=== PATIENT | female | born 1960 | race African-American/Black ===

== ENCOUNTER 2022-03-12 10:28 | Inpatient (IN) | payer SELFPAY ==
[~2022-03-12] VITALS: Ht 167.6 cm; Wt 100.2 kg
[2022-03-12 11:05] LABS: BASOPHILS % 0.3 % (0.0-2.0); EOSINOPHILS % 0.5 % (0.0-5.0); HEMATOCRIT. 33.6 % (36.0-48.0); HEMOGLOBIN. 10.9 g/dL (12.0-16.0); LYMPHOCYTES % 8.7 % (20.0-50.0); MEAN CORPUSCULAR HEMOGLOBIN 28.3 pg (28.0-32.0); MEAN CORPUSCULAR VOLUME 87.5 fL (81.0-99.0); MONOCYTES % 5.6 % (2.0-8.0); NEUTROPHILS % 84.9 % (40.0-76.0); PLATELET 212 x1000/uL (130-400); RED BLOOD CELL COUNT 3.84 mill/uL (4.2-5.4); RED CELL DISTRIBUTION WIDTH 13.4 % (11.6-14.6)
[2022-03-12 11:09] LABS: CLARITY URINE CLEAR (CLEAR); COLOR URINE YELLOW (YELLOW); KETONES URINE NEGATIVE (NEGATIVE); LEUKOCYTE ESTERASE URINE 1+ (NEGATIVE); NITRITE URINE NEGATIVE (NEGATIVE); OCCULT BLOOD URINE 2+ (NEGATIVE); PROTEIN URINE TRACE (NEGATIVE); SPECIFIC GRAVITY URINE 1.019 (1.005-1.030)
[2022-03-12 11:17] LABS: CHLORIDE 113 mEq/L (98-107)
[2022-03-12] MEDS ORDERED: SODIUM CHLORIDE 0.9% 1,000 ML IV ONE (11:45)
[2022-03-12] MEDS ORDERED: CEFTRIAXONE 1 G PREMIX 50 ML IV NR (11:45)
[2022-03-12] MEDS ORDERED: LEVOFLOXACIN 500MG PREMIX 100 ML IV SCH ×2 (13:00→14:00)
[2022-03-12] MEDS ORDERED: ONDANSETRON HCL 4MG/2ML INJ IV PRN (13:00)
[2022-03-12] MEDS ORDERED: ZOLPIDEM TARTRATE 5MG TABLET PO PRN (13:00)
[2022-03-12] MEDS ORDERED: ACETAMINOPHEN 325MG TABLET PO PRN ×2 (13:00)
[2022-03-12] MEDS ORDERED: GUAIFENESIN 200MG/10ML SUGAR FREE UDC PO PRN (13:00)
[2022-03-12] MEDS ORDERED: CLONIDINE 0.1MG TABLET PO PRN (13:00)
[2022-03-12] MEDS ORDERED: NITROGLYCERIN 0.4MG TABLET SL SL PRN (13:00)
[2022-03-12] MEDS ORDERED: MAGNESIUM/ALUMINUM HYDROXIDE/SIMETHICONE 30ML UDC PO PRN (13:00)
[2022-03-12] MEDS ORDERED: TRAMADOL 50MG TABLET PO PRN (13:00)
[2022-03-12] MEDS ORDERED: IPRATROPIUM/ALBUTEROL 0.5-3(2.5)MG/3ML NEB NEB PRN (13:00)
[2022-03-12] MEDS ORDERED: DOCUSATE SODIUM 100MG CAPSULE PO PRN (13:00)
[2022-03-12] MEDS: BLOOD SUGAR DIAGNOSTIC STRIP TEST SCH ×3 (13:17→20:41)
[2022-03-12] MEDS: INSULIN LISPRO 100 UNITS/ML SUBCUT SCH ×3 (13:18→20:42)
[2022-03-12] MEDS: DEXTROSE 50% WATER 50ML SYRINGE IV PRN ×2 (13:20→18:03)
[2022-03-12] MEDS: SODIUM CHLORIDE 0.9% 1,000 ML IV SCH (14:14)
[2022-03-12] MEDS: ASPIRIN 325MG EC TABLET PO SCH (14:14)
[2022-03-12] MEDS: METOPROLOL TARTRATE 25MG TABLET PO SCH ×2 (14:14→20:41)
[2022-03-12] MEDS: ASCORBIC ACID 500 MG TABLET PO SCH ×2 (14:21→22:03)
[2022-03-12] MEDS: FAMOTIDINE 20MG TABLET PO SCH (14:21)
[2022-03-12] MEDS: ZINC SULFATE 220 MG ( 50 ) CAPSULE PO SCH (14:21)
[2022-03-12] MEDS: ENOXAPARIN 40MG/0.4ML SYR SUBCUT SCH (14:22)
[2022-03-12] MEDS: CHOLECALCIFEROL (D3) 1000 UNIT TABLET PO SCH (14:22)
[2022-03-12 15:49] LABS: CREATINE KINASE MB FRACTION 2.7 ng/mL (0.5-3.6)
[2022-03-12 16:00] VITALS: BP 145/86
[2022-03-12 16:02] LABS: *AMPHETAMINES SCREEN URINE NEGATIVE (NEGATIVE); *BARBITURATES SCREEN URINE NEGATIVE (NEGATIVE); *BENZODIAZEPINES SCREEN URINE NEGATIVE (NEGATIVE); *COCAINE SCREEN URINE NEGATIVE (NEGATIVE); CANNABINOID URINE SCREEN NEGATIVE (NEGATIVE); METHADONE URINE SCREEN NEGATIVE (NEGATIVE); OPIATES URINE SCREEN NEGATIVE (NEGATIVE); PHENCYCLIDINE URINE SCREEN NEGATIVE (NEGATIVE)
[2022-03-12 16:22] LABS: ETHANOL BLOOD < 10 mg/dL; HDL CHOLESTEROL 48 mg/dL (40-59); LDL CHOLESTEROL 83 mg/dL (5-100); T4 FREE 1.25 ng/dL (0.76-1.46); TOTAL IRON BINDING CAPACITY 267 ug/dL (250-450)
[2022-03-12 16:39] LABS: FOLIC ACID (FOLATE) SERUM 5.2 ng/mL (>5.38)
[2022-03-12 16:59] VITALS: BP 144/61
[2022-03-12 20:00] VITALS: BP 124/50
[2022-03-12] MEDS ORDERED: FAMOTIDINE 20MG TABLET PO SCH (21:00)
[2022-03-13] VITALS: BP 130/60
[2022-03-13 02:23] LABS: CREATINE KINASE MB FRACTION 2.4 ng/mL (0.5-3.6)
[2022-03-13 04:00] VITALS: BP 125/59
[2022-03-13] MEDS: SODIUM CHLORIDE 0.9% 1,000 ML IV SCH (04:11)
[2022-03-13] MEDS: DEXTROSE 50% WATER 50ML SYRINGE IV PRN (05:51)
[2022-03-13] MEDS: BLOOD SUGAR DIAGNOSTIC STRIP TEST SCH ×4 (05:51→21:00)
[2022-03-13] MEDS: INSULIN LISPRO 100 UNITS/ML SUBCUT SCH ×4 (06:07→21:28)
[2022-03-13 07:15] LABS: BASOPHILS % 0.7 % (0.0-2.0); EOSINOPHILS % 2.1 % (0.0-5.0); HEMATOCRIT. 30.1 % (36.0-48.0); LYMPHOCYTES % 25.4 % (20.0-50.0); MEAN CORPUSCULAR HEMOGLOBIN 29.1 pg (28.0-32.0); MEAN CORPUSCULAR VOLUME 88.1 fL (81.0-99.0); MEAN PLATELET VOLUME 10.2 fl (7.4-10.4); NEUTROPHILS % 63.8 % (40.0-76.0); PLATELET 189 x1000/uL (130-400); RED BLOOD CELL COUNT 3.42 mill/uL (4.2-5.4); RED CELL DISTRIBUTION WIDTH 13.3 % (11.6-14.6)
[2022-03-13 07:30] LABS: CHLORIDE 112 mEq/L (98-107)
[2022-03-13 07:41] LABS: PHOSPHORUS 2.6 mg/dL (2.5-4.9)
[2022-03-13 07:51] VITALS: BP 147/56
[2022-03-13] MEDS: METOPROLOL TARTRATE 25MG TABLET PO SCH ×2 (08:07→21:28)
[2022-03-13] MEDS: ASCORBIC ACID 500 MG TABLET PO SCH ×2 (08:07→21:00)
[2022-03-13] MEDS: ZINC SULFATE 220 MG ( 50 ) CAPSULE PO SCH (08:07)
[2022-03-13] MEDS: ASPIRIN 325MG EC TABLET PO SCH (08:07)
[2022-03-13] MEDS: CHOLECALCIFEROL (D3) 1000 UNIT TABLET PO SCH (08:08)
[2022-03-13] MEDS: FAMOTIDINE 20MG TABLET PO SCH (08:08)
[2022-03-13] MEDS: ENOXAPARIN 40MG/0.4ML SYR SUBCUT SCH (08:13)
[2022-03-13] MEDS ORDERED: CEFTRIAXONE 1 G PREMIX 50 ML IV SCH (09:00)
[2022-03-13] MEDS: CEFTRIAXONE 1,000 MG in DEXTROSE 5% WATER 50 ML IV SCH (09:58)
[2022-03-13] MEDS: LEVOFLOXACIN 250MG PREMIX 50 ML IV SCH (11:32)
[2022-03-13] MEDS: DEXT 5%/0.9% NACL 1,000 ML IV SCH (11:33)
[2022-03-13 11:43] VITALS: BP 134/61
[2022-03-13 16:04] VITALS: BP 120/85
[2022-03-13 20:00] VITALS: BP 127/78
[2022-03-14] VITALS: BP 134/61
[2022-03-14] MEDS: DEXT 5%/0.9% NACL 1,000 ML IV SCH ×2 (00:20→13:40)
[2022-03-14 04:00] VITALS: BP 117/54
[2022-03-14] MEDS: BLOOD SUGAR DIAGNOSTIC STRIP TEST SCH ×4 (06:24→21:00)
[2022-03-14] MEDS: INSULIN LISPRO 100 UNITS/ML SUBCUT SCH ×4 (07:39→21:22)
[2022-03-14 07:54] VITALS: BP 136/62
[2022-03-14] MEDS: CEFTRIAXONE 1,000 MG in DEXTROSE 5% WATER 50 ML IV SCH (08:05)
[2022-03-14] MEDS: ZINC SULFATE 220 MG ( 50 ) CAPSULE PO SCH (08:05)
[2022-03-14] MEDS: ASCORBIC ACID 500 MG TABLET PO SCH ×2 (08:05→21:22)
[2022-03-14] MEDS: CHOLECALCIFEROL (D3) 1000 UNIT TABLET PO SCH (08:05)
[2022-03-14] MEDS: METOPROLOL TARTRATE 25MG TABLET PO SCH ×2 (08:06→21:21)
[2022-03-14] MEDS: ASPIRIN 325MG EC TABLET PO SCH (08:06)
[2022-03-14] MEDS: FAMOTIDINE 20MG TABLET PO SCH (08:06)
[2022-03-14] MEDS: ENOXAPARIN 30MG/0.3ML SYR SUBCUT SCH ×2 (08:07→21:21)
[2022-03-14] MEDS: LEVOFLOXACIN 250MG PREMIX 50 ML IV SCH ×3 (11:00→15:21)
[2022-03-14 11:48] VITALS: BP 140/53
[2022-03-14 15:44] VITALS: BP 135/61
[2022-03-14 20:00] VITALS: BP 130/62
[2022-03-15] VITALS: BP 122/66
[2022-03-15] MEDS: DEXT 5%/0.9% NACL 1,000 ML IV SCH (03:00)
[2022-03-15 04:00] VITALS: BP 127/66
[2022-03-15] MEDS: BLOOD SUGAR DIAGNOSTIC STRIP TEST SCH ×2 (07:40→12:26)
[2022-03-15 08:00] VITALS: BP 131/70
[2022-03-15] MEDS: INSULIN LISPRO 100 UNITS/ML SUBCUT SCH ×2 (08:10→12:16)
[2022-03-15] MEDS: ENOXAPARIN 30MG/0.3ML SYR SUBCUT SCH (09:40)
[2022-03-15] MEDS: CEFTRIAXONE 1,000 MG in DEXTROSE 5% WATER 50 ML IV SCH (09:40)
[2022-03-15] MEDS: CHOLECALCIFEROL (D3) 1000 UNIT TABLET PO SCH (09:41)
[2022-03-15] MEDS: ASPIRIN 325MG EC TABLET PO SCH (09:41)
[2022-03-15] MEDS: ZINC SULFATE 220 MG ( 50 ) CAPSULE PO SCH (09:41)
[2022-03-15] MEDS: METOPROLOL TARTRATE 25MG TABLET PO SCH (09:41)
[2022-03-15] MEDS: ASCORBIC ACID 500 MG TABLET PO SCH (09:41)
[2022-03-15] MEDS: FAMOTIDINE 20MG TABLET PO SCH (09:43)
[2022-03-15] MEDS: LEVOFLOXACIN 250MG PREMIX 50 ML IV SCH (11:04)
[2022-03-15 11:55] VITALS: BP 131/70
[2022-03-15 12:00] VITALS: BP 152/73
[2022-03-16] MEDS ORDERED: LEVOFLOXACIN 500MG TABLET PO SCH (11:00)
== END 2022-03-15 14:15 | disposition home or self-care (01) | DRG 720 ==
LOC: ER 10:47 → 7WST 11:58 → SUPCPDRO 12:49 → ENRESERV 14:06
PROVIDERS: ADMIT Internal Medicine; ATTEND Internal Medicine
DX: A41.9 Sepsis, unspecified organism (principal); N17.0 Acute kidney failure with tubular necrosis; G93.41 Metabolic encephalopathy; D63.8 Anemia in other chronic diseases classified elsewhere; E11.649 Type 2 diabetes mellitus with hypoglycemia without coma; E83.51 Hypocalcemia; N39.0 Urinary tract infection, site not specified; E86.0 Dehydration; I10 Essential (primary) hypertension; Z79.899 Other long term (current) drug therapy
CPT/HCPCS: 36415; 71045; 80053; 80061; 80305; 80320; 81003; 82550; 82553; 82607; 82746; 82962; 83036; 83540; 83550; 83605; 83735; 84100; 84439; 84443; 84484; 85025; 93005; 93306; 93970; 99285; J0696; J1650; J1815; J1956; J7042; J7060; G0480